=== PATIENT | male | born 1990 | race Two or more races ===

== ENCOUNTER 2016-12-08 19:31 | Emergency (ER) | payer BC ==
--- NOTE | 2016-12-08 19:53 | CPEKG ---
Heart Rate: 96 RR Interval: 625 P-R Interval: 140 QRSD Interval: 88 QT Interval: 336 QTC Interval: 425 P [place]: 45 QRS [place]: 39 T Wave Richmond: 40 EKG Severity - NORMAL ECG - EKG Impression: SINUS RHYTHM Electronically Signed By: Juan Saldana 08-Dec-2016 19:56:33
[2016-12-08] MEDS ORDERED: NS 1,000 ML IV ONE (19:55)
--- NOTE | 2016-12-08 20:00 | EDPHY ---
H & P Time Seen by Provider: 12/08/16 19:37 HPI/ROS: CHIEF COMPLAINT: Syncope HISTORY OF PRESENT ILLNESS: 26-year-old man is visiting from [place]. He arrived in [place] around 3:00 p.m.. He went to a restaurant on the [facility], had 1 drink and half a burger and got up to use the bathroom. He did not have anything to eat or drink all day prior to this because he was traveling. He felt lightheaded and dizzy and felt like he might pass out and did fall down and hit his head and sustained a scalp laceration. He remembers getting up and then sitting down with assistance and feeling dizzy again. He might have had a 2nd episode of syncope. He presents to the emergency department by EMS with a normal glucose in sinus rhythm feeling much better at the time of my evaluation. No headache or neck pain. REVIEW OF SYSTEMS: Eye: no change in vision ENT: no sore throat Cardiac: No chest pain. Pulmonary: no cough or SOB Abdomen: no vomiting, diarrhea, abdominal pain Musculoskeletal: no back pain or neck pain Skin: Occipital skin laceration on the scalp Neuro: no headache Constitutional: no fever : no urinary symptoms A comprehensive 10 point review of systems is otherwise negative aside from elements mentioned in the history of present illness. PAST MEDICAL HISTORY: Negative Social history: Visiting from [place], no drugs. Negative family history for premature coronary disease or sudden . General Appearance: Alert and conversant, cooperative. Eyes: No scleral icterus. ENT, Mouth: Normal mucous membranes. No hemotympanum or raccoon eyes. No bruising behind the mastoid. Respiratory: Normal respiratory effort, breath sounds equal, lungs are clear to auscultation. Cardiovascular: Regular rate and rhythm. Gastrointestinal: Abdomen is soft and non tender. Neurological: Alert and oriented x3. Normally conversant. Face symmetric, normal movement and sensation in all extremities. Skin: Left occipital 2 cm scalp laceration Musculoskeletal: No cervical or thoracic or lumbar spine tenderness to palpation. Psychiatric: Not agitated. Emergency Department course/MDM: Normal EKG. Almost certainly vasovagal in nature. Did not have hypoglycemia pre-hospital. Does not have red flags to suggest he is at high risk for intracranial bleeding , skull fracture, epidural or subdural. 2106: Patient walked around the emergency department without recurrent dizziness or syncope. Smoking Status: Never smoked Constitutional: Initial Vital Signs Temperature (C) 36.8 C 12/08/16 19:43 Heart Rate 86 12/08/16 19:43 Respiratory Rate 18 12/08/16 19:43 Blood Pressure 132/73 H 12/08/16 19:43 O2 Sat (%) 93 12/08/16 19:43 O2 Delivery Mode Room Air Allergies/Adverse Reactions: No Known Allergies Allergy (Unverified 12/08/16 19:44) Home Medications: Medication Instructions Recorded NK [No Known Home Meds] 12/08/16 Medical Decision Making - Diagnostics EKG Interpretation: 12-lead EKG interpreted by me; official reading is in trace master. My interpretation is sinus rhythm, normal intervals. Procedures: Procedure: Laceration repair. Verbal consent was obtained from the patient. The 2 cm laceration on the left occipital scalp was anesthetized using 0.5% bupivacaine with epinephrine. The wound was irrigated with standard emergency department protocol, draped and explored. There were no deep structures involved. No foreign body found. The wound was repaired with surgical caitlin. The wound repair was simple. Excellent hemostasis was obtained. Wound care instructions were discussed and the patient was warned regarding scarring. The procedure was performed by myself. Differential Diagnosis: Differential diagnosis considered for syncope including but not limited to vasovagal syncope, arrhythmia, dehydration, and blood loss. - Data Points Medications Given: Discontinued Medications Sodium Chloride (Ns) 1,000 mls @ 0 mls/hr IV ONCE ONE PRN Reason: Wide Open Stop: 12/08/16 19:56 Last Admin: 12/08/16 20:00 Dose: 1,000 mls Departure - Departure Disposition: Home, Routine, Self-Care Clinical Impression: Syncope Qualifiers: Syncope type: vasovagal syncope Qualified Code(s): R55 - Syncope and collapse Scalp laceration Qualifiers: Encounter type: initial encounter Qualified Code(s): S01.01XA - Laceration without foreign body of scalp, initial encounter Condition: Good Instructions: Laceration (ED), Syncope (ED), Head Injury (ED) Additional Instructions: Wound Care Follow-Up: Removal of sutures in 7-10 days. Suture removal is complimentary in uncomplicated cases. Infection or abnormal findings would require reevaluation by the MD. In that case, you may be billed. Referrals: Patient,NotPresent [Unknown] - As per Instructions (Dr. Miranda, your PCP in [place])
[2016-12-08 21:23] VITALS: BP 128/79; PULSE 97; RESP 16; TEMP 98.1; O2SAT 95
== END 2016-12-08 21:22 | disposition home or self-care (01) ==
PROC: 0HQ0XZZ Repair Scalp Skin, External Approach (ICD-10-PCS; principal; 2016-12-08)
DX: R55 Syncope and collapse (principal); S01.01XA Laceration without foreign body of scalp, initial encounter; W18.09XA Striking against other object with subsequent fall, initial encounter; Y92.89 Other specified places as the place of occurrence of the external cause